=== PATIENT | female | born 1950 | race Caucasian/White ===

== ENCOUNTER 2019-11-23 12:37 | Inpatient (IN) | payer MEDICARE, MEDICAID ==
[~2019-11-23] VITALS: Ht 157.5 cm; Wt 92.9 kg
[~2019-11-23 12:37] MED LIST: HYDR-3343 PO; INSU100I11 SQ-INSULIN; INSU100I13 SQ-INSULIN; ISOS60TA36 PO; METO50TA82 PO
--- NOTE | 2019-11-23 12:40 | NUR ---
Late entry for 1240: Pt BIB [facility], EMS called by APS who are requesting pt be admitted for inability to care for herself in order to fascilitate place pt in a senior living. APS also called due to pt's living condition, pt currently lives alone, home is unkept w/ a bedbug infestation & APS is concerned that pt is unable to care for herself as demonstrated by her inablility to obtain food from the store & preform basic ADLs (such as bathing). Pt was also not wearing her prescribed home O2 and is unable to remember if/when she last took her prescription medications. A large quantity of bedbugs noted on pt & [facility] gurney which [facility] medics were not aware of, pt take from ED room 19 directly to decon room, RNs assisted pt bathing & all her belongings double bagged,pt dressed in clean gown, pt brought back to ED room 21, connected to monitors, offered warm blanket, call light in reach, MD Enrique has assessed pt, ALTON Hughes has been reviewing pt's case, pt reports no needs at this time. WCTM.
--- NOTE | 2019-11-23 13:51 | NUR ---
TASK RN: DIET TRAY ORDERED.
--- NOTE | 2019-11-23 13:52 | NUR ---
TASK RN: VITALS UPDATED
[2019-11-23 13:56] LABS: BASOPHILS # (AUTO) 0.03 x10^3/uL (0-0.1); BASOPHILS % (AUTO) 0 % (0-1); EOSINOPHILS % (AUTO) 2 % (1-7); LYMPHOCYTES # (AUTO) 0.95 x10^3/uL (1-3.4); LYMPHOCYTES % (AUTO) 11 % (22-44); MD NO; MEAN CORPUSCULAR HEMOGLOBIN 30.9 pg (27.0-34.8); MEAN CORPUSCULAR VOLUME 93.7 fL (80-100); MEAN PLATELET VOLUME 7.9 fL (7.4-10.4); MONOCYTES # (AUTO) 0.53 x10^3/uL (0.2-0.8); MONOCYTES % (AUTO) 6 % (2-9); NEUTROPHILS # (AUTO) 6.99 x10^3/uL (1.8-6.8); NEUTROPHILS % (AUTO) 80 % (42-75); PLATELET COUNT 355 x10^3/uL (130-400); RED BLOOD COUNT 3.37 x10^6/uL (3.82-5.3); RED CELL DISTRIBUTION WIDTH 13.7 % (9.6-15.2)
[2019-11-23 14:03] LABS: ALBUMIN 2.3 g/dL (3.4-5.0); ANION GAP 7 mmol/L (5-15); CALCIUM 8.5 mg/dL (8.5-10.1); CHLORIDE 109 mmol/L (98-107)
[2019-11-23] MEDS ORDERED: LABETALOL 5MG/ML, 20ML ONE (14:08)
[2019-11-23 14:12] LABS: ALANINE AMINOTRANSFERASE 73 U/L (12-78); ALKALINE PHOSPHATASE 126 U/L (45-117); BILIRUBIN,TOTAL 0.2 mg/dL (0.2-1.0); CREATININE 1.22 mg/dL (0.55-1.02); FREE T4 (FREE THYROXINE) 1.36 ng/dL (0.76-1.46); TOTAL PROTEIN 6.6 g/dL (6.4-8.2); TROPONIN I < 0.015 ng/mL (0.000-0.045)
--- NOTE | 2019-11-23 14:13 | NUR ---
TASK RN: PT MEDICATED PER ORDERS. MD AWARE OF BP
[2019-11-23] MEDS ORDERED: LABETALOL 5MG/ML, 20ML IVPush ONE (14:30)
[2019-11-23] MEDS ORDERED: FUROSEMIDE 40 MG/4 ML IV ONE (14:30)
--- NOTE | 2019-11-23 14:51 | NUR ---
ALTON Hughes contact [facility] service who had been set up to begin providing care for pt after her previous discharge on 11/16/19, [facility] stated that they were unable to set up service for pt because pt would not answer the door when they came to pt's house. MD Enrique notified, pt in bed, NAD, eating meal tray, pt to be admitted.
[2019-11-23 15:12] LABS: MICROSCOPIC AUTO
[2019-11-23 15:14] LABS: CULTURE INDICATED? NO
--- NOTE | 2019-11-23 15:40 | NUR ---
Pt resting on gurney, NAD, denies additional needs at this time. Given warm blanket for comfort. Even and unlabored respirations. Waiting for med tele bed to admit. WCTM.
[2019-11-23] MEDS ORDERED: FUROSEMIDE 20 MG/2 ML ONE (15:45)
[2019-11-23] MEDS ORDERED: HEPARIN 5,000 UNITS/ML, 1ML ONE (15:45)
[2019-11-23] MEDS: HEPARIN 5,000 UNITS/ML, 1ML SQ SCH (15:50)
[2019-11-23] MEDS ORDERED: ONDANSETRON 2MG/ML, 2ML IVPush PRN (16:00)
[2019-11-23] MEDS ORDERED: morphine SULFATE 10 MG/ML, 1ML IVPush PRN (16:00)
[2019-11-23] MEDS ORDERED: ONDANSETRON ODT 4 MG PO PRN (16:00)
[2019-11-23] MEDS ORDERED: DEXTROSE 4 GM TAB.CHEW PO PRN (16:00)
[2019-11-23] MEDS ORDERED: ACETAMINOPHEN 325 MG TABLET PO PRN (16:00)
[2019-11-23] MEDS ORDERED: GLUCAGON 1 MG IM PRN (16:00)
[2019-11-23] MEDS ORDERED: DEXTROSE 50%, 50ML SYRINGE IVPush PRN (16:00)
[2019-11-23] MEDS ORDERED: hydrALAzine 20 MG/ML, 1ML IVPush PRN (16:00)
[2019-11-23] MEDS ORDERED: GABAPENTIN 300 MG CAPSULE PO PRN (16:00)
--- NOTE | 2019-11-23 16:30 | NUR ---
LATE ENTRY: Blood glucose measure at 167, order insulin pen from pharmacy. NAD, Denies additional needs. Taken to restroom via wheelchair. WCTM
--- NOTE | 2019-11-23 17:04 | NUR ---
Pure wick set up in room, pt resting in gurney watching television, even and unlabored respirations. WCTM.
--- NOTE | 2019-11-23 17:51 | NUR ---
pt resting in [place], on monitor, call light within reach, denies additional needs, will continue to monitor. NAD, even respirations. Waiting for tele bed.
[2019-11-23] MEDS: INSULIN LISPRO 100 UNITS/ML, PEN SQ-INSULIN SCH ×2 (17:59→22:00)
--- NOTE | 2019-11-23 18:04 | NUR ---
Pt found standing at side of bed, did not use call light, reported that "lau" (pure wick) was not working how it was supposed to, pt changed and pure wick repositioned. Pt ate 75% of meal tray. NAD, denies additional needs. WCTM. Waiting for tele bed.
--- NOTE | 2019-11-23 18:27 | NUR ---
Pt report given to Olena CHILEL, pt to transfer up to floor on monitor. NAD, even and unlabored respirations.
--- NOTE | 2019-11-23 18:52 | NUR ---
Pt resting in [facility]. Awaiting transport to floor. Bedside report given to Deshawn CHILEL, pt care transferred at this time.
[2019-11-23 19:35] VITALS: BP 166/73
[2019-11-23] MEDS: SODIUM CHLORIDE FLUSH 10ML SYR IVF SCH (21:07)
[2019-11-23] MEDS: METOPROLOL TARTRATE 50 MG TAB PO SCH (21:07)
[2019-11-23] MEDS: INSULIN GLARGINE 100 UNITS/ML, PEN SQ-INSULIN SCH (22:01)
[2019-11-24 01:04] VITALS: BP 168/82
[2019-11-24] MEDS: HEPARIN 5,000 UNITS/ML, 1ML SQ SCH ×4 (01:04→23:40)
[2019-11-24] MEDS: METOPROLOL TARTRATE 50 MG TAB PO SCH ×2 (06:12→17:04)
[2019-11-24] MEDS: INSULIN LISPRO 100 UNITS/ML, PEN SQ-INSULIN SCH ×4 (07:00→21:18)
[2019-11-24 07:55] LABS: BASOPHILS # (AUTO) 0.05 x10^3/uL (0-0.1); BASOPHILS % (AUTO) 1 % (0-1); EOSINOPHILS # (AUTO) 0.25 x10^3/uL (0-0.4); EOSINOPHILS % (AUTO) 3 % (1-7); LYMPHOCYTES # (AUTO) 0.94 x10^3/uL (1-3.4); LYMPHOCYTES % (AUTO) 12 % (22-44); MD NO; MEAN CORPUSCULAR HGB CONC 32.9 g/dL (32.4-35.8); MEAN CORPUSCULAR VOLUME 94.2 fL (80-100); MEAN PLATELET VOLUME 7.8 fL (7.4-10.4); MONOCYTES % (AUTO) 9 % (2-9); NEUTROPHILS # (AUTO) 5.91 x10^3/uL (1.8-6.8); NEUTROPHILS % (AUTO) 75 % (42-75); PLATELET COUNT 326 x10^3/uL (130-400); RED BLOOD COUNT 3.21 x10^6/uL (3.82-5.3); RED CELL DISTRIBUTION WIDTH 13.9 % (9.6-15.2)
[2019-11-24] MEDS ORDERED: FUROSEMIDE 20 MG/2 ML IV SCH (08:00)
[2019-11-24 08:06] LABS: ANION GAP 4 mmol/L (5-15); CHLORIDE 110 mmol/L (98-107)
[2019-11-24 08:07] LABS: CREATININE 1.23 mg/dL (0.55-1.02)
[2019-11-24 08:48] VITALS: BP 179/80
[2019-11-24] MEDS: SODIUM CHLORIDE FLUSH 10ML SYR IVF SCH ×2 (09:00→21:19)
[2019-11-24] MEDS: LISINOPRIL 10 MG TABLET PO SCH ×2 (09:00→21:18)
[2019-11-24] MEDS: ISOSORBIDE MONONITRATE ER 60 MG TABLET PO SCH (09:09)
[2019-11-24 12:57] VITALS: BP 112/54
[2019-11-24 20:13] VITALS: BP 128/59
[2019-11-24] MEDS: INSULIN GLARGINE 100 UNITS/ML, PEN SQ-INSULIN SCH (21:19)
[2019-11-25 01:10] VITALS: BP 122/71
[2019-11-25] MEDS: METOPROLOL TARTRATE 50 MG TAB PO SCH ×2 (06:07→17:50)
[2019-11-25] MEDS: INSULIN LISPRO 100 UNITS/ML, PEN SQ-INSULIN SCH ×4 (07:00→20:30)
[2019-11-25 08:05] VITALS: BP 151/67
[2019-11-25] MEDS: SODIUM CHLORIDE FLUSH 10ML SYR IVF SCH ×2 (08:30→21:50)
[2019-11-25] MEDS: HEPARIN 5,000 UNITS/ML, 1ML SQ SCH ×2 (08:30→16:56)
[2019-11-25] MEDS: ISOSORBIDE MONONITRATE ER 60 MG TABLET PO SCH (08:31)
[2019-11-25] MEDS: LISINOPRIL 10 MG TABLET PO SCH ×2 (08:31→20:29)
[2019-11-25 14:29] VITALS: BP 122/62
[2019-11-25 18:29] VITALS: BP 124/67
[2019-11-25] MEDS: INSULIN GLARGINE 100 UNITS/ML, PEN SQ-INSULIN SCH (20:30)
[2019-11-26] MEDS: HEPARIN 5,000 UNITS/ML, 1ML SQ SCH ×3 (00:23→16:34)
[2019-11-26 01:07] VITALS: BP 151/66
[2019-11-26] MEDS: METOPROLOL TARTRATE 50 MG TAB PO SCH ×2 (05:12→16:33)
[2019-11-26 06:30] VITALS: BP 120/65
[2019-11-26] MEDS: INSULIN LISPRO 100 UNITS/ML, PEN SQ-INSULIN SCH ×4 (08:24→21:58)
[2019-11-26] MEDS: LISINOPRIL 10 MG TABLET PO SCH ×2 (09:56→21:57)
[2019-11-26] MEDS: SODIUM CHLORIDE FLUSH 10ML SYR IVF SCH ×2 (09:56→21:58)
[2019-11-26] MEDS: ISOSORBIDE MONONITRATE ER 60 MG TABLET PO SCH (09:56)
[2019-11-26 12:11] VITALS: BP 123/60
[2019-11-26 16:33] VITALS: BP 134/73
[2019-11-26 20:05] VITALS: BP 146/65
[2019-11-26] MEDS: INSULIN GLARGINE 100 UNITS/ML, PEN SQ-INSULIN SCH (21:58)
[2019-11-27] MEDS: HEPARIN 5,000 UNITS/ML, 1ML SQ SCH ×3 (00:43→16:49)
[2019-11-27 01:03] VITALS: BP 138/79
[2019-11-27] MEDS: METOPROLOL TARTRATE 50 MG TAB PO SCH ×2 (06:11→16:49)
[2019-11-27 07:22] VITALS: BP 122/71
[2019-11-27] MEDS: INSULIN LISPRO 100 UNITS/ML, PEN SQ-INSULIN SCH ×4 (08:22→20:35)
[2019-11-27] MEDS: ISOSORBIDE MONONITRATE ER 60 MG TABLET PO SCH (08:22)
[2019-11-27] MEDS: SODIUM CHLORIDE FLUSH 10ML SYR IVF SCH ×2 (08:23→20:35)
[2019-11-27] MEDS: LISINOPRIL 10 MG TABLET PO SCH ×2 (08:23→20:37)
[2019-11-27 13:14] VITALS: BP 126/88
[2019-11-27 16:49] VITALS: BP 134/72
[2019-11-27] MEDS: INSULIN GLARGINE 100 UNITS/ML, PEN SQ-INSULIN SCH (20:34)
[2019-11-27 20:37] VITALS: BP 124/64
[2019-11-28 00:32] VITALS: BP 133/66
[2019-11-28] MEDS: HEPARIN 5,000 UNITS/ML, 1ML SQ SCH ×3 (01:05→17:45)
[2019-11-28] MEDS: METOPROLOL TARTRATE 50 MG TAB PO SCH ×2 (04:52→17:46)
[2019-11-28 07:21] VITALS: BP 143/79
[2019-11-28] MEDS: INSULIN LISPRO 100 UNITS/ML, PEN SQ-INSULIN SCH ×4 (07:51→20:09)
[2019-11-28] MEDS: ISOSORBIDE MONONITRATE ER 60 MG TABLET PO SCH (09:57)
[2019-11-28] MEDS: LISINOPRIL 10 MG TABLET PO SCH ×2 (09:57→20:09)
[2019-11-28] MEDS: SODIUM CHLORIDE FLUSH 10ML SYR IVF SCH ×2 (09:58→20:09)
[2019-11-28 12:38] VITALS: BP 134/60
[2019-11-28] MEDS: metFORMIN 500 MG TABLET PO SCH (16:23)
[2019-11-28] MEDS ORDERED: GLIMEPIRIDE 1 MG TABLET PO SCH (17:00)
[2019-11-28] MEDS ORDERED: metFORMIN 500 MG TABLET PO SCH (17:00)
[2019-11-28 17:45] VITALS: BP 152/64
[2019-11-28 18:37] VITALS: BP 148/67
[2019-11-28] MEDS: TRAZODONE 50MG TABLET PO PRN (20:09)
[2019-11-28] MEDS ORDERED: TRAZODONE 50MG TABLET PO SCH (21:00)
[2019-11-28] MEDS ORDERED: INSULIN GLARGINE 100 UNITS/ML, PEN SQ-INSULIN SCH (21:00)
[2019-11-29] MEDS ORDERED: TEMAZEPAM 15 MG CAPSULE PO PRN (00:30)
[2019-11-29 00:33] VITALS: BP 128/65
[2019-11-29] MEDS: HEPARIN 5,000 UNITS/ML, 1ML SQ SCH ×3 (00:47→17:22)
[2019-11-29] MEDS: METOPROLOL TARTRATE 50 MG TAB PO SCH ×2 (05:10→17:22)
[2019-11-29 06:52] VITALS: BP 126/61
[2019-11-29] MEDS: LISINOPRIL 20 MG TABLET PO SCH ×2 (09:00→09:15)
[2019-11-29] MEDS: GLIMEPIRIDE 1 MG TABLET PO SCH ×2 (09:00→09:14)
[2019-11-29 09:14] VITALS: BP 129/73
[2019-11-29] MEDS: metFORMIN 500 MG TABLET PO SCH ×2 (09:14→17:22)
[2019-11-29] MEDS: ISOSORBIDE MONONITRATE ER 60 MG TABLET PO SCH (09:15)
[2019-11-29] MEDS: SODIUM CHLORIDE FLUSH 10ML SYR IVF SCH ×2 (09:16→20:48)
[2019-11-29 13:58] VITALS: BP 136/67
[2019-11-29 17:20] VITALS: BP 159/67
[2019-11-29 18:36] VITALS: BP 159/67
[2019-11-29] MEDS: TRAZODONE 50MG TABLET PO PRN (20:47)
[2019-11-30 01:00] VITALS: BP 121/64
[2019-11-30] MEDS: HEPARIN 5,000 UNITS/ML, 1ML SQ SCH ×3 (01:21→17:17)
[2019-11-30] MEDS: METOPROLOL TARTRATE 50 MG TAB PO SCH ×2 (05:58→17:15)
[2019-11-30 07:00] LABS: ALBUMIN 2.2 g/dL (3.4-5.0); ANION GAP 4 mmol/L (5-15); CALCIUM 8.2 mg/dL (8.5-10.1); CHLORIDE 110 mmol/L (98-107)
[2019-11-30 07:06] LABS: ALANINE AMINOTRANSFERASE 29 U/L (12-78); ALKALINE PHOSPHATASE 76 U/L (45-117); BILIRUBIN,TOTAL 0.2 mg/dL (0.2-1.0); CREATININE 1.52 mg/dL (0.55-1.02); TOTAL PROTEIN 6.1 g/dL (6.4-8.2)
[2019-11-30 07:56] VITALS: BP 145/73
[2019-11-30] MEDS: SODIUM CHLORIDE FLUSH 10ML SYR IVF SCH ×2 (09:00→21:04)
[2019-11-30] MEDS: GLIMEPIRIDE 1 MG TABLET PO SCH (09:40)
[2019-11-30] MEDS: LISINOPRIL 20 MG TABLET PO SCH (09:41)
[2019-11-30] MEDS: ISOSORBIDE MONONITRATE ER 60 MG TABLET PO SCH (09:41)
[2019-11-30 13:29] VITALS: BP 147/68
[2019-11-30 17:12] VITALS: BP 116/86
[2019-11-30 20:09] VITALS: BP 135/65
[2019-11-30] MEDS: TRAZODONE 50MG TABLET PO PRN (21:04)
[2019-12-01 00:47] VITALS: BP 125/63
[2019-12-01] MEDS: HEPARIN 5,000 UNITS/ML, 1ML SQ SCH ×2 (01:09→09:05)
[2019-12-01] MEDS: METOPROLOL TARTRATE 50 MG TAB PO SCH (05:16)
[2019-12-01 06:25] LABS: BASOPHILS # (AUTO) 0.05 x10^3/uL (0-0.1); BASOPHILS % (AUTO) 1 % (0-1); EOSINOPHILS # (AUTO) 0.15 x10^3/uL (0-0.4); EOSINOPHILS % (AUTO) 3 % (1-7); LYMPHOCYTES # (AUTO) 1.36 x10^3/uL (1-3.4); LYMPHOCYTES % (AUTO) 23 % (22-44); MD NO; MEAN CORPUSCULAR HEMOGLOBIN 30.8 pg (27.0-34.8); MEAN CORPUSCULAR HGB CONC 33.2 g/dL (32.4-35.8); MEAN CORPUSCULAR VOLUME 92.7 fL (80-100); MEAN PLATELET VOLUME 8.8 fL (7.4-10.4); MONOCYTES # (AUTO) 0.53 x10^3/uL (0.2-0.8); MONOCYTES % (AUTO) 9 % (2-9); NEUTROPHILS # (AUTO) 3.83 x10^3/uL (1.8-6.8); NEUTROPHILS % (AUTO) 65 % (42-75); PLATELET COUNT 251 x10^3/uL (130-400); RED BLOOD COUNT 2.86 x10^6/uL (3.82-5.3); RED CELL DISTRIBUTION WIDTH 13.5 % (9.6-15.2)
[2019-12-01 06:36] LABS: ALBUMIN 2.3 g/dL (3.4-5.0); CALCIUM 8.4 mg/dL (8.5-10.1); CHLORIDE 111 mmol/L (98-107)
[2019-12-01 06:39] LABS: ANION GAP 4 mmol/L (5-15); CREATININE 1.36 mg/dL (0.55-1.02)
[2019-12-01 07:19] VITALS: BP 120/65
[2019-12-01] MEDS ORDERED: LISI-170 PO (07:52)
[2019-12-01] MEDS ORDERED: GLIM1TAB PO (07:52)
[2019-12-01] MEDS: GLIMEPIRIDE 1 MG TABLET PO SCH (07:59)
[2019-12-01] MEDS: LISINOPRIL 20 MG TABLET PO SCH (07:59)
[2019-12-01] MEDS: ISOSORBIDE MONONITRATE ER 60 MG TABLET PO SCH (07:59)
[2019-12-01] MEDS: SODIUM CHLORIDE FLUSH 10ML SYR IVF SCH (08:03)
[2019-12-01] MEDS ORDERED: TRAZ50TA66 PO (08:08)
[2019-12-01] MEDS ORDERED: SODIUM CHLORIDE 0.9% 1,000ML IVBOLUS ONE (08:30)
[2019-12-01] MEDS ORDERED: CALCIUM GLUCONATE 4.6 MEQ in SODIUM CHLORIDE 0.9% 100 ML IV ONE (08:30)
== END 2019-12-01 11:45 | disposition home or self-care (01) | DRG 640 ==
LOC: ED 15:12 → SUATTDRO 15:24 → EDIP 15:38 → 4WST 19:00
PROVIDERS: ADMIT Hospitalist; ATTEND Family Medicine
DX: R62.7 Adult failure to thrive (principal); E43 Unspecified severe protein-calorie malnutrition; J96.11 Chronic respiratory failure with hypoxia; I16.0 Hypertensive urgency; I12.9 Hypertensive chronic kidney disease with stage 1 through stage 4 chronic kidney disease, or unspecified chronic kidney disease; E11.22 Type 2 diabetes mellitus with diabetic chronic kidney disease; D64.9 Anemia, unspecified; G47.00 Insomnia, unspecified; E66.9 Obesity, unspecified; G47.33 Obstructive sleep apnea (adult) (pediatric); J44.9 Chronic obstructive pulmonary disease, unspecified; N18.3 Chronic kidney disease, stage 3 (moderate); Z66 Do not resuscitate; Z79.4 Long term (current) use of insulin; Z82.49 Family history of ischemic heart disease and other diseases of the circulatory system; Z87.440 Personal history of urinary (tract) infections; Z87.891 Personal history of nicotine dependence; Z91.19 Patient's noncompliance with other medical treatment and regimen; Z83.3 Family history of diabetes mellitus; Z68.37 Body mass index [BMI] 37.0-37.9, adult; Z91.14 Patient's other noncompliance with medication regimen
CPT/HCPCS: 36415; 71045; 80048; 80053; 80069; 81001; 82962; 83036; 83735; 84439; 84443; 84484; 85025; 86480; 96374; 96375; 99285; G0378; J0610; J1644; J1940; J1815; J7030